=== PATIENT | male | born 1950 | race Caucasian/White ===

== ENCOUNTER 2017-07-23 10:22 | Inpatient (IN) | payer BC, MEDICARE ==
[2017-07-23] MEDS ORDERED: Aspirin EC TAB* 325 MG PO ONE (10:46)
--- NOTE | 2017-07-23 11:14 | RAD ---
INDICATION: Chest pain with exertion. Abnormal EKG. COMPARISON: July 23, 2006 chest radiograph. TECHNIQUE: Dual energy PA and routine lateral views of the chest were obtained. REPORT: Clear lungs and pleural spaces. Negative for pneumothorax. The heart, pulmonary vasculature, and mediastinal contours are unremarkable. Mild thoracic degenerative spondylosis. IMPRESSION: No evidence for acute intrathoracic disease.
[2017-07-23 11:26] LABS: ABS Basophils 0 10^3/ul (0-0.2); ABS Eosinophils 0.1 10^3/ul (0-0.6); ABS Lymphocytes 0.9 10^3/ul (1.0-4.8); ABS Monocytes 0.5 10^3/ul (0-0.8); ABS Neutrophils 4.4 10^3/ul (1.5-7.7); ABS Nucleated RBC 0 10^3/ul; Eosinophil % 2.1 % (0-6); Hematocrit 40 % (42-52); Hemoglobin 13.5 g/dl (14.0-18.0); Lymphocyte % 15.5 % (25-47); Mean Corpuscular HGB Conc 34 g/dl (31-36); Mean Corpuscular Hemoglobin 27 pg (27-31); Mean Corpuscular Volume 81 fL (80-94); Mean Platelet Volume 8 um3 (7.4-10.4); Nucleated Red Blood Cells % 0; Platelet Count 181 10^3/ul (150-450); Red Blood Count 4.97 10^6/ul (4.0-5.4); Red Cell Distribution Width 14 % (10.5-15)
[2017-07-23 11:35] LABS: INR 1.18 (0.77-1.02)
[2017-07-23 11:40] LABS: EGFR Non-African American 92.7 (>60)
[2017-07-23] MEDS ORDERED: Nitroglycerin 0.1 mg/Hr PATCH* (2.5 MG) TRANSDERM ONE (11:44)
[2017-07-23] MEDS ORDERED: Metoprolol Tartrate TAB* 25 MG PO ONE (11:44)
[2017-07-23] MEDS ORDERED: Heparin DRIP 25,000 UNITS(*) 25,000 UNITS/500 ML BAG IVPB SCH (14:15)
[2017-07-23] MEDS: Heparin VIAL(*) 5000 UNITS/ML VIAL (FIVE THOUSAND) IV SCH ×2 (14:20→20:53)
[2017-07-23] MEDS ORDERED: Ondansetron INJ* 2 MG/ML VIAL IV PRN (14:37)
[2017-07-23] MEDS ORDERED: Al Hydrox/Mg Hydrox/Simet LIQ* 30 ML UDC PO PRN (14:37)
[2017-07-23] MEDS ORDERED: Acetaminophen TAB* 325 MG PO PRN (14:37)
[2017-07-23] MEDS ORDERED: HYDROmorphone INJ* 1 MG/ML CARPUJECT SYRINGE ONE (14:39)
[2017-07-23] MEDS ORDERED: Ticagrelor* 90 MG TAB PO ONE (14:47)
[2017-07-23] MEDS ORDERED: Magnesium Sulfate 2 GM IV* 2 GM/50 ML BAG IVPB ONE (14:47)
[2017-07-23] MEDS ORDERED: Nitroglycerin TAB 0.4 MG* 0.4 MG TAB SL PRN (14:51)
--- NOTE | 2017-07-23 15:19 | ED ---
Anusha Torres Thomas, scribed for Andres Medina MD on 07/23/17 at 1048 . HPI Chest Pain - HPI Summary HPI Summary: The patient is a 66 year old male referred to the emergency department complaining of intermittent chest pain for the last month. The pain is provoked by exertion and is alleviated when he rests. The pain is described as pressure. There is no radiation of the chest pain. The pain is associated with nausea and diaphoresis. There is no shortness of breath or dizziness. The patient went to see his primary care provider yesterday, and the patient was noted to be in A- Fib with RVR. The patients primary care provider sent for bloodwork and a chest x-ray. The patients troponin was noted to be 3.3, and he was asked to come to the emergency department. Today, the patient continues to have intermittent pressure pain. - History of Current Complaint Chief Complaint: EDChestPainROMI Time Seen by Provider: 07/23/17 10:42 Hx Obtained From: Patient Onset/Duration: Started Weeks Ago - onset one month ago, Still Present Timing: Intermittent Current Severity: None Pain Intensity: 0 Pain Scale Used: 0-10 Numeric Character: Pressure/Squeezing Aggravating Factor(s): Exertion Alleviating Factor(s): Rest Associated Signs and Symptoms: Positive: Other: - nausea, diaphoresis; NEGATIVE : SOB, dizziness. Negative: Fever Related History: Obesity - Allergy/Home Medications Allergies/Adverse Reactions: Allergies Allergy/AdvReac Type Severity Reaction Status Date / Time No Known Allergies Allergy Verified 07/23/17 10:55 Home Medications: Home Medications Allopurinol [Allopurinol] 1 tab PO DAILY 07/23/17 [History Confirmed 07/23/17] Apixaban* [Eliquis*] 5 mg PO DAILY 07/23/17 [History Confirmed 07/23/17] Aspirin 81 mg PO DAILY 07/23/17 [History Confirmed 07/23/17] Atenolol 50 mg PO BID 07/23/17 [History Confirmed 07/23/17] Atorvastatin* [Lipitor 40 MG*] 40 mg PO DAILY 07/23/17 [History Confirmed ] Nitroglycerin [Nitroglycerin] 1 tab SL SEE INSTRUCTIONS PRN 07/23/17 [History Confirmed 07/23/17] PMH/Surg Hx/FS Hx/Imm Hx Opthamlomology History: Denies: Hx Legally Blind EENT History: Denies: Hx Deafness Neurological History: Reports: Hx Headaches Infectious Disease History: No Infectious Disease History: Denies: Traveled Outside the [place] in Last 30 Days - Family History Known Family History: Negative: Cardiac Disease - Social History Alcohol Use: None Substance Use Type: Reports: None Smoking Status (MU): Never Smoked Tobacco Review of Systems Positive: Skin Diaphoresis. Negative: Fever Positive: Chest Pain Negative: Shortness Of Breath Positive: Nausea Neurological: Negative - dizziness All Other Systems Reviewed And Are Negative: Yes Physical Exam - Summary Physical Exam Summary: VITAL SIGNS: Reviewed. GENERAL: Patient is a well-developed and nourished male who is lying comfortable in the stretcher. Patient is not in any acute respiratory distress. HEAD AND FACE: No signs of trauma. No ecchymosis, hematomas or skull depressions. No sinus tenderness. EYES: PERRLA, EOMI x 2, No injected conjunctiva, no nystagmus. EARS: Hearing grossly intact. Ear canals and tympanic membranes are within normal limits. MOUTH: Oropharynx within normal limits. NECK: Supple, trachea is midline, no adenopathy, no JVD, no carotid bruit, no c- spine tenderness, neck with full ROM. CHEST: Symmetric, no tenderness at palpation LUNGS: Clear to auscultation bilaterally. No wheezing or crackles. CVS: Regular rate and rhythm, S1 and S2 present, no murmurs or gallops appreciated. ABDOMEN: Soft, non-tender. No signs of distention. No rebound no guarding, and no masses palpated. Bowel sounds are normal. EXTREMITIES: FROM in all major joints, no edema, no cyanosis or clubbing. NEURO: Alert and oriented x 3. No acute neurological deficits. Speech is normal and follows commands. SKIN: Dry and warm Triage Information Reviewed: Yes Vital Signs On Initial Exam: Initial Vitals Temp Pulse Resp BP Pulse Ox 97.3 F 100 18 188/93 96 07/23/17 10:24 07/23/17 10:24 07/23/17 10:24 07/23/17 10:24 07/23/17 10:24 Vital Signs Reviewed: Yes Diagnostics - Vital Signs Vital Signs Temp Pulse Resp BP Pulse Ox 07/23/17 10:40 93 15 97 07/23/17 10:39 166/89 07/23/17 10:24 97.3 F 100 18 188/93 96 - Laboratory Lab Results: Lab Results 07/23/17 07/23/17 07/23/17 Range/Units 11:05 11:05 11:05 WBC (3.5-10.8) 10^3/ul RBC (4.0-5.4) 10^6/ul Hgb (14.0-18.0) g/dl Hct (42-52) % MCV (80-94) fL MCH (27-31) pg MCHC (31-36) g/dl RDW (10.5-15) % Plt Count (150-450) 10^3/ul MPV (7.4-10.4) um3 Neut % (Auto) (38-83) % Lymph % (Auto) (25-47) % Madison % (Auto) (0-7) % Eos % (Auto) (0-6) % Baso % (Auto) (0-2) % Absolute Neuts (auto) (1.5-7.7) 10^3/ul Absolute Lymphs (auto) (1.0-4.8) 10^3/ul Absolute Monos (auto) (0-0.8) 10^3/ul Absolute Eos (auto) (0-0.6) 10^3/ul Absolute Basos (auto) (0-0.2) 10^3/ul Absolute Nucleated RBC 10^3/ul Nucleated RBC % INR (Anticoag Therapy) 1.18 H (0.77-1.02) APTT 34.1 (26.0-36.3) seconds Sodium 136 (133-145) mmol/L Potassium 4.0 (3.5-5.0) mmol/L Chloride 102 (101-111) mmol/L Carbon Dioxide 28 (22-32) mmol/L Anion Gap 6 (2-11) mmol/L BUN 11 (6-24) mg/dL Creatinine 0.83 (0.67-1.17) mg/dL Est GFR ( Amer) 119.2 (>60) Est GFR (Non-Af Amer) 92.7 (>60) BUN/Creatinine Ratio 13.3 (8-20) Glucose 256 H (70-100) mg/dL Calcium 9.4 (8.6-10.3) mg/dL Magnesium 1.7 L (1.9-2.7) mg/dL Total Bilirubin 0.70 (0.2-1.0) mg/dL AST 19 (13-39) U/L ALT 15 (7-52) U/L Alkaline Phosphatase 98 (34-104) U/L Total Creatine Kinase 92 (10-223) U/L CK-MB (CK-2) 4.5 (0.6-6.3) ng/mL Troponin I 0.80 H* (<0.04) ng/mL B-Natriuretic Peptide 75 ( - 100) pg/mL Total Protein 6.8 (6.4-8.9) g/dL Albumin 4.2 (3.2-5.2) g/dL Globulin 2.6 (2-4) g/dL Albumin/Globulin Ratio 1.6 (1-3) TSH 2.37 (0.34-5.60) mcIU/mL Thyroxine (T4) 7.08 (6.09-12.23) mcg/mL 07/23/17 07/23/17 Range/Units 11:05 13:40 WBC 6.0 (3.5-10.8) 10^3/ul RBC 4.97 (4.0-5.4) 10^6/ul Hgb 13.5 L (14.0-18.0) g/dl Hct 40 L (42-52) % MCV 81 (80-94) fL MCH 27 (27-31) pg MCHC 34 (31-36) g/dl RDW 14 (10.5-15) % Plt Count 181 (150-450) 10^3/ul MPV 8 (7.4-10.4) um3 Neut % (Auto) 73.6 (38-83) % Lymph % (Auto) 15.5 L (25-47) % Madison % (Auto) 8.2 H (0-7) % Eos % (Auto) 2.1 (0-6) % Baso % (Auto) 0.6 (0-2) % Absolute Neuts (auto) 4.4 (1.5-7.7) 10^3/ul Absolute Lymphs (auto) 0.9 L (1.0-4.8) 10^3/ul Absolute Monos (auto) 0.5 (0-0.8) 10^3/ul Absolute Eos (auto) 0.1 (0-0.6) 10^3/ul Absolute Basos (auto) 0 (0-0.2) 10^3/ul Absolute Nucleated RBC 0 10^3/ul Nucleated RBC % 0 INR (Anticoag Therapy) (0.77-1.02) APTT (26.0-36.3) seconds Sodium (133-145) mmol/L Potassium (3.5-5.0) mmol/L Chloride (101-111) mmol/L Carbon Dioxide (22-32) mmol/L Anion Gap (2-11) mmol/L BUN (6-24) mg/dL Creatinine (0.67-1.17) mg/dL Est GFR ( Amer) (>60) Est GFR (Non-Af Amer) (>60) BUN/Creatinine Ratio (8-20) Glucose (70-100) mg/dL Calcium (8.6-10.3) mg/dL Magnesium (1.9-2.7) mg/dL Total Bilirubin (0.2-1.0) mg/dL AST (13-39) U/L ALT (7-52) U/L Alkaline Phosphatase (34-104) U/L Total Creatine Kinase (10-223) U/L CK-MB (CK-2) (0.6-6.3) ng/mL Troponin I 0.99 H* (<0.04) ng/mL B-Natriuretic Peptide ( - 100) pg/mL Total Protein (6.4-8.9) g/dL Albumin (3.2-5.2) g/dL Globulin (2-4) g/dL Albumin/Globulin Ratio (1-3) TSH (0.34-5.60) mcIU/mL Thyroxine (T4) (6.09-12.23) mcg/mL Result Diagrams: 07/23/17 11:05 07/23/17 11:05 Lab Statement: Any lab studies that have been ordered have been reviewed, and results considered in the medical decision making process. - Radiology CXR Xray Interpretation: No Acute Changes - No evidence for acute intrathoracic disease. Dr. Medina has reviewed this report. Radiology Interpretation Completed By: Radiologist - EKG 10:51 Cardiac Rate: NL EKG Rhythm: Sinus Rhythm - at 86 BPM EKG Interpretation: No ST elevations. Chest Pain Course/Dx - Course Assessment/Plan: The patient is a 66 year old male referred to the emergency department complaining of intermittent chest pain for the last month. The pain is provoked by exertion and is alleviated when he rests. The pain is described as pressure. There is no radiation of the chest pain. The pain is associated with nausea and diaphoresis. There is no shortness of breath or dizziness. The patient went to see his primary care provider yesterday, and the patient was noted to be in A-Fib with RVR. The patients primary care provider sent for bloodwork and a chest x-ray. The patients troponin was noted to be 3.3, and he was asked to come to the emergency department. Today, the patient continues to have intermittent pressure pain. Test results are without significant abnormality except a slight anemia, hyperglycemia, and troponin 0.80. EKG shows no ST elevations. Therefore, I believe the patient has an NSTEMI. The patient was given ASA, Lopressor, and a nitroglycerin patch. I discussed the case with Dr. Higgins, who accepts the patient for admission. The patient is hemodynamically stable and alert and oriented x3. - Chest Pain Differential Diagnosis/HQI/PQRI: Acute MA, ACS, Angina, CHF, Chest Wall, GI Disease, Lower Respiratory Infection - Diagnoses Provider Diagnoses: Chest pain, NSTEMI (non-ST elevated myocardial infarction) - Provider Notifications Discussed Care Of Patient With: Anant Higgins Time Discussed With Above Provider: 11:53 Instructed by Provider To: Admit As Inpatient Discharge - Discharge Plan Condition: Stable Disposition: ADMITTED TO [facility] The documentation as recorded by the Anusha quevedo Thomas accurately reflects the service I personally performed and the decisions made by me, Andres Medina MD.
[2017-07-23 15:51] LABS: Urine Appearance Clear; Urine Blood Negative (Negative); Urine Color Yellow; Urine Ketones Trace (Negative); Urine Protein Negative (Negative); Urine Specific Gravity 1.026 (1.010-1.030); Urine Urobilinogen Negative (Negative)
[2017-07-23] MEDS: Atorvastatin* 80 MG TAB PO SCH (17:43)
[2017-07-23] MEDS: NS 0.9% 1000 ML* 1,000 ML IV SCH (17:43)
[2017-07-23] MEDS: Atenolol TAB* 50 MG PO SCH (20:57)
[2017-07-23] MEDS: Docusate CAP* 100 MG PO SCH (20:57)
--- NOTE | 2017-07-23 21:23 | HP ---
CC: Dr. Adonis Talbot * HISTORY AND PHYSICAL: DATE OF ADMISSION: 07/23/17 PROVIDER: Libia Blanco NP PRIMARY CARE PROVIDER: Dr. Adonis Talbot. ATTENDING PHYSICIAN WHILE IN THE HOSPITAL: Dr. Anant Higgins * (report dictated by Libia Blanco NP). CHIEF COMPLAINT: Exertional chest pain. HISTORY OF PRESENT ILLNESS: Mr. Hahn is a 66-year-old male patient. He carries a past medical history of hypertension, diabetes, hypercholesterolemia and gout, who presented to the emergency room today for further evaluation of approximately 1 month period of ongoing chest pain with exertion. The patient states that approximately 1 month ago he started to develop chest pain with strenuous activity and exertion. He states initially the pain lasted 2 to 3 minutes and was subsided with rest. He does report that the pain did progressively get worse over time. He states he had 1 episode where he had to walk approximately quarter of a mile and had to stop fci through due to the severe chest pain. He states that the chest pain did fine with rest at that time. He does report that he was nauseated. He reports that his chest pain is always midsternal. It does not radiate. He denied any diaphoresis with any of the chest pain episodes. He states that on Saturday, he developed some substernal chest pain. He states that he got home at approximately 2 o'clock in the morning. He states that he had the substernal chest pain at that time and he had difficulty going to sleep and later wake due to the pain. He states the pain lasted approximately 4 hours. After that episode, he decided he would follow up with his primary care provider for further evaluation of his chest pain. On Saturday, he saw his primary care provider, Dr. Adonis Talbot who at that time ordered an EKG, a nuclear stress test, and a troponin. His troponin level that was drawn in doctor's office was 3.38. Initially, his EKG in the doctor's office showed what appeared to be atrial fibrillation and at that time his doctor started him on Eliquis 5 mg b.i.d. The patient reports that his doctor called him this morning and told him to come to the emergency room due to the elevation in the troponin level for further evaluation. The patient presented to the emergency room today. He states that he has not had any chest pain for the past 48 hours. He does report that he did take Eliquis 5 mg this morning. He was placed on the spindle repairer here in the emergency room. He was found to be in sinus rhythm at a rate of 86. He is currently in sinus rhythm at a rate of 68 on the monitor. Due to his elevated troponins and 1 month history of chest pain, we were asked to evaluate him for admission to the hospital. PAST MEDICAL HISTORY: Significant for: 1. Hypertension. 2. Diabetes. 3. Hypercholesterolemia. 4. Gout. PAST SURGICAL HISTORY: Significant for tonsillectomy. MEDICATIONS: Home medications include: 1. Eliquis 5 mg 1 tablet p.o. b.i.d., but has dosed at 7:30 a.m. This is a new medication that was started last night on 07/22/17. 2. Nitroglycerin 0.4 mg 1 tablet sublingual as needed for chest pain for maximum of 3 doses. 3. Atorvastatin 40 mg 1 p.o. daily. 4. Allopurinol 100 mg 1 p.o. daily. 5. Metformin HCl 850 mg 1 tablet by mouth daily. 6. Atenolol 50 mg 1 tablet 2 times a day. 7. Aspirin 81 mg p.o. daily. ALLERGIES: No known drug allergies. FAMILY HISTORY: Father with a history of stroke. Mother with a history of hypertension. No documented diabetes or cancers within the family. Mother also has dementia. SOCIAL HISTORY: The patient does not smoke, does not drink, does not use any illicit drugs. He is currently single and lives alone. Surrogate decision maker in the event he is unable to make his own decisions would be his daughter , Judy. Her phone number is [phone]. Secondary surrogate decision maker is his son, Jude Hahn. REVIEW OF SYSTEMS: There was no documented fever. There has been no significant weight change. There was no double vision. No ear discharge. The patient denies having any rhinorrhea. Denies any sore throat. Currently, denies any chest pain, but has reported chest pain for the last month stating that it occurs on a daily basis, only with strenuous activity. There is no orthopnea. There was no nocturnal dyspnea. There is no abdominal pain. No nausea, vomiting, or diarrhea. There was no dysuria or frequency. There has been no seizures. No loss of consciousness. No pruritus. No skin ulcerations. A review of 14 systems was completed and all others are negative. PHYSICAL EXAMINATION GENERAL: At this time, Mr. Hahn is a 66-year-old male. He appears well, sitting on the stretcher in the emergency room. He does not appear to be in any distress. VITAL SIGNS: Blood pressure is 133/86, temperature was 97.3, heart rate is 72, sinus rhythm on the monitor, respirations are 18, O2 saturation is 95% on room air. HEENT: Head is atraumatic, normocephalic. Eyes: EOMs are intact. Sclerae anicteric, not pale. Oral mucosa appears to be moist. No oropharyngeal erythema. NECK: Supple. LUNGS: Clear to auscultation bilaterally. No wheezes, rales, or rhonchi. CARDIAC: S1, S2. Regular rate and rhythm. There are no murmurs, rubs, or gallops. ABDOMEN: Soft and nontender. Bowel sounds are active x4. EXTREMITIES: Pulses are +2 throughout. He is able to move all 4 extremities with 5/5 strength. NEUROLOGIC: He is awake. He is alert and oriented x3. Speech is clear. There are no focal deficits. SKIN: Skin is intact. DIAGNOSTIC STUDIES AND LABORATORY DATA: WBCs were 6.0, RBCs were 4.97, hemoglobin 13.5, hematocrit was 40, platelet count was 181. INR was 1.18. APTT was 34.1. Sodium was 136, potassium was 4, chloride was 102, carbon dioxide was 28, anion gap was 6, BUN was 11, creatinine was 0.83, glucose was 256, calcium 9.4, magnesium was 1.7. ASTs were 19, ALTs were 15. Initial troponin was 0.80, repeat troponin was 0.99. BNP was 75. TSH was 2.37 and T4 was 7.08. EKG shows sinus rhythm or left anterior fascicular block at a rate of 86. Chest x- ray, impression: There is no evidence of acute intrathoracic disease. ASSESSMENT AND PLAN: Mr. Hahn is a 66-year-old male patient that presented to the emergency room with a complaint of chest pain on and off times for the last month. He states that he was seen and evaluated by his primary care provider yesterday and was asked to come to the emergency room for further evaluation of his chest pain and his elevated troponin. He will be admitted to the hospital as inpatient status for: 1. Chest pain. I suspect that his chest pain is related to myocardial ischemia at this time. I have consulted Cardiology, Dr. Hope who recommended to be placed him on a heparin bolus and heparin drip and he will be a candidate for cardiac catheterization. The patient will continue on a beta-esperanza. He currently takes atenolol 50 mg, we will continue that. We will continue his aspirin [address] him on a high-intensity atorvastatin 80 mg p.o. daily. We will repeat an EKG in the morning. He will be placed on continuous telemetry monitoring. He will be n.p.o. after midnight for his cardiac catheterization. We will continue to trend his troponins x2. I will add on a lipid profile for the morning. 2. Hypertension. We will continue him on his atenolol 50 mg b.i.d. 3. Diabetes. We will do Accu-Cheks a.c. and continue his metformin 500 mg p.o. daily. I will add an A1c to his lab work from today. 4. Hypomagnesium. I will give him 2 g of IV magnesium. 5. Hypercholesterolemia. He will be placed on Lipitor 80 mg p.o. daily. 6. FEN. He will be n.p.o. after midnight. He can have a heart healthy diet today. 7. Code status. He is a full code. 8. DVT prophylaxis. He is on heparin drip. 9. Disposition. He will be placed inpatient. TIME SPENT: Time spent on this admission was approximately 60 minutes, greater than half that time was spent [id number] with the patient obtaining my history and physical, the other half time was spent going over the plan of care with the patient and his family and implementing my plan of care. I have discussed this with my attending, Dr. Anant Higgins and he is in agreement with my plan. LIBIA RACHEL, EXHIBITION DESIGNER [id number]/[facility] #: [id number] ALYCIA
--- NOTE | 2017-07-23 23:49 | CONS ---
CARDIOLOGY CONSULTATION REPORT: DATE OF CONSULT: 07/23/17 INDICATION FOR CONSULTATION: Acute coronary syndrome. HISTORY OF PRESENT ILLNESS: The patient is a 66-year-old male with a history of hypertension, diabetes, hypercholesterolemia, who came to the hospital because of acute coronary syndrome and chest pain. The patient states for the past month, he has been having crescendo angina with exertion. The patient states when he did any exertion, he would have a burning sensation in his chest. He felt as though he had a sunburn on his chest; however, when he rested , these symptoms went away. However, on Saturday, he had a prolonged episode of angina at rest. He had the same symptoms as well as diaphoresis and nausea. Again, it lasted 3 to 4 hours and then slowly resolved. Yesterday morning, he went to see his primary care physician. His EKG at the primary care physician' s office appeared to be atrial fibrillation. The patient was given a prescription for Eliquis and had blood drawn. This morning, his blood work came back and showed a troponin level of 3.3 and the patient was instructed to go to the emergency room. On arrival to the emergency room at [facility], the patient was pain free. His last dose of Eliquis was this morning at 7:30 in the morning. PAST MEDICAL HISTORY: 1. Hypertension. 2. Hypercholesterolemia. 3. Diabetes. PAST SURGICAL HISTORY: None. MEDICATIONS: 1. Atorvastatin 40 mg a day. 2. Aspirin 81 mg a day. 3. Atenolol 50 mg b.i.d. 4. Apixaban 5 mg daily. This was just started yesterday. 5. Metformin 850 mg daily. ALLERGIES: No known drug allergies. FAMILY HISTORY: No family history of early coronary artery disease. SOCIAL HISTORY: He lives in [place]. He denies tobacco or alcohol use. PHYSICAL EXAM: Height is 6 feet, weight 242 pounds. Temperature 98.3, heart rate is 81, blood pressure 138/81, respiratory rate is 16, oxygen saturation 96 % on room air. Sclerae anicteric. Oropharynx is pink without erythema. Carotids are 2+ without bruits. JVD is normal. Thyroid is normal. Cardiac Exam: S1, S2 without any murmurs, rubs, or gallops. PMI is normal. Lungs are clear to auscultation bilaterally. There is no dullness to percussion. Abdomen is soft, nontender, and nondistended with normoactive bowel sounds. Extremities showed no edema. He has 2+ pulses throughout. The patient is awake , alert and oriented. He moves all 4 extremities equally. DIAGNOSTIC STUDIES/LAB DATA: CBC within normal limits. Chemistries within normal limits. BUN 11, creatinine 0.83. AST and ALT are normal. Magnesium 1.7. Initial troponin 0.8, second troponin 0.99. TSH 2.37. EKG demonstrates normal sinus rhythm with normal axis and intervals. IMPRESSION: This is a 66-year-old male with a history of hypertension and hypercholesterolemia, who has had crescendo angina from the past week and appeared to have an acute coronary syndrome on Saturday. The patient is now being admitted to the hospital for his acute coronary syndrome. RECOMMENDATIONS: For now, my recommendation is the patient be started on heparin. His Eliquis will be stopped. The patient will continue on aspirin. My recommendation is the patient to get Brilinta 180 mg now and started on 90 mg b.i.d. The patient will continue his statin therapy and beta esperanza therapy. The patient will undergo a cardiac catheterization. The risks of this procedure were described in detail to the patient. The risks and benefits were explained. The patient is willing to proceed. The patient will have a cardiac catheterization by Dr. Moran in the next day or 2 once the determination of his Eliquis status is resolved. The patient did have atrial fibrillation at his primary care physician's office. The patient will be observed for atrial fibrillation here in the hospital. The question is whether she goes home on anticoagulation for his atrial fibrillation. [id number]/[facility] #: [id number] ALYCIA
[2017-07-24 05:02] LABS: ABS Basophils 0 10^3/ul (0-0.2); ABS Eosinophils 0.2 10^3/ul (0-0.6); ABS Lymphocytes 1.4 10^3/ul (1.0-4.8); ABS Monocytes 0.6 10^3/ul (0-0.8); ABS Neutrophils 5.4 10^3/ul (1.5-7.7); ABS Nucleated RBC 0 10^3/ul; Eosinophil % 2.7 % (0-6); Hematocrit 37 % (42-52); Lymphocyte % 18.8 % (25-47); Mean Corpuscular HGB Conc 35 g/dl (31-36); Mean Corpuscular Hemoglobin 28 pg (27-31); Mean Corpuscular Volume 80 fL (80-94); Mean Platelet Volume 8 um3 (7.4-10.4); Nucleated Red Blood Cells % 0; Platelet Count 178 10^3/ul (150-450); Red Blood Count 4.68 10^6/ul (4.0-5.4); Red Cell Distribution Width 14 % (10.5-15); White Blood Count 7.7 10^3/ul (3.5-10.8)
[2017-07-24 05:17] LABS: EGFR Non-African American 102.6 (>60)
[2017-07-24] MEDS: Heparin VIAL(*) 5000 UNITS/ML VIAL (FIVE THOUSAND) IV SCH (05:42)
[2017-07-24] MEDS: NS 0.9% 1000 ML* 1,000 ML IV SCH (05:48)
[2017-07-24] MEDS ORDERED: Perflutren Lipid Microsphere* 3 ML VIAL ONE (07:48)
[2017-07-24] MEDS ORDERED: Ticagrelor* 90 MG TAB PO SCH (09:00)
[2017-07-24] MEDS ORDERED: metFORMIN* 850 MG TAB PO SCH (09:00)
[2017-07-24] MEDS: Aspirin Low Dose CHEW TAB* 81 MG PO SCH (09:07)
[2017-07-24] MEDS: Atenolol TAB* 50 MG PO SCH ×2 (09:07→21:12)
[2017-07-24] MEDS: Docusate CAP* 100 MG PO SCH ×2 (09:08→21:15)
--- NOTE | 2017-07-24 09:29 | ECHO ---
Patient: SAÚL CHRISTENSEN [facility] Rec#: [id number] : 1950 Date: 07/24/2017 Age: 66y Height: 182.88 cm / 72.0 in Weight: 112.49 kg / 247.9 lbs Sex: M BSA: 2.33 Room#: 434 Admit Date#: 07/23/2017 Type: Inpatient Referring: Thiago Hope MD Reading: Laurel Mcgee MD Custodial Engineer: Yamila Arizmendi YARI CC: Heather Moran MD CC: Adonis Talbot MD Transthoracic Echocardiogram Indication: ACS BP: 151/82 HR: 61 Rhythm: NSR Findings History: HTN,DM,CP,ACS,HLD. Technical Comments: The study is technically difficult. Definity used to enhance images. Left Ventricle: The left ventricular chamber size is normal. Septal wall hypertrophy is observed. There is normal left ventricular systolic function.The base of the posterior wall shows subtle relative hypokinesis. The estimated ejection fraction is 55-60%. Abnormal left ventricular diastolic filling is observed, consistent with impaired relaxation. The left ventricular diastolic filling pattern is consistent with elevated left ventricular end-diastolic pressure. Left Atrium: The left atrium is mildly dilated. Right Ventricle: The right ventricular cavity size is normal. The right ventricular global systolic function is normal. Right Atrium: The right atrial cavity size is normal. Aortic Valve: The aortic valve is trileaflet. There is no evidence of aortic valve thickening. There is no evidence of aortic regurgitation. There is no evidence of aortic stenosis. Mitral Valve: The mitral valve leaflets appear normal. There is mild mitral regurgitation. There is no evidence of mitral stenosis. Tricuspid Valve: The tricuspid valve leaflets are normal. There is trace to mild tricuspid regurgitation. There is evidence of mild pulmonary hypertension. Pulmonic Valve: The pulmonic valve appears normal. There is no evidence of pulmonic regurgitation. There is no pulmonic stenosis. Pericardium: A pericardial fat pad is visualized. Aorta: There is mild dilatation of the ascending aorta. There is no dilatation of the aortic arch. There is mild dilatation of the aortic root. Pulmonary Artery: The main pulmonary artery appears normal. Venous: The venous system is not well visualized. Contrast: Definity was used to optimize study. A total of 5 ml used. Intravenous contrast was used to enhance endocardial border definition. Conclusions The left ventricular chamber size is normal. Septal wall hypertrophy is observed. There is normal left ventricular systolic function.The base of the posterior wall shows subtle relative hypokinesis. The estimated ejection fraction is 55-60%. The left ventricular diastolic filling pattern is consistent with elevated left ventricular end-diastolic pressure. The right ventricular global systolic function is normal. There is mild mitral regurgitation. There is trace to mild tricuspid regurgitation. There is evidence of mild pulmonary hypertension: 38 mmHg. Ascending aorta diameter 3.5 cm, mildly dilated. No prior echo to compare. Measurements Name Value Normal Range RVIDd (AP) 2D 3.2 cm (0.9 - 2.6) RVDdMajor (2D) 4 cm (2.2 - 4.4) RAd ISD 4CH 5 cm (3.4 - 4.9) RA (A4C)W 3.9 cm (2.9 - 4.6) IVSd (2D) 1.2 cm (0.6 - 1) LVPWd (2D) 0.8 cm (0.6 - 1) LVIDd (2D) 4.8 cm (3.6 - 5.4) LVIDs (2D) 3.4 cm - LV FS (2D) 30 % (25 - 45) Aortic Annulus 2.2 cm (1.4 - 2.6) Ao root diameter (2D) 3.9 cm (2.1 - 3.5) Ascending Ao 3.5 cm (2.1 - 3.4) Aortic arch 3.3 cm (1.8 - 3.4) Descending Ao 0.5 cm - LA dimension (AP) 2D 4.5 cm (2.3 - 3.8) LAd ISD 4CH 5.8 cm (2.9 - 5.3) LA ISD 4CH W 3.4 cm (2.5 - 4.5) Name Value Normal Range LA ESV SP 4CH (A/L) 43 ml - LA ESV SP 2CH (A/L) 87 ml - LA ESV BP (A/L) 67 ml - LA ESV BP (A/L) index 28.46 ml/m2 - LA ESV SP 4CH (MOD) 40 ml - LA ESV SP 2CH (MOD) 84 ml - Name Value Normal Range MV E-wave Vmax 1 m/sec - MV deceleration time 214 msec - MV A-wave Vmax 0.8 m/sec - MV E:A ratio 1.28 ratio - LV septal e' Vmax 0.06 m/sec - LV lateral e' Vmax 0.09 m/sec - LV E:e' septal ratio 16.67 ratio - LV E:e' lateral ratio 11.11 ratio - Name Value Normal Range AV Vmax 1.4 m/sec - AV VTI 35.2 cm - AV peak gradient 8.04 mmHg - AV mean gradient 4.86 mmHg - LVOT Vmax 1.1 m/sec - LVOT VTI 28 cm - LVOT peak gradient 5.1 mmHg - LVOT mean gradient 2.34 mmHg - Name Value Normal Range MR Vmax 3.3 m/sec - MR VTI 116 cm - Name Value Normal Range TR Vmax 2.8 m/sec - TR peak gradient 30 mmHg - RAP 8 mmHg - RVSP 38 mmHg - Name Value Normal Range PV Vmax 0.8 m/sec - PV peak gradient 2.33 mmHg -
[2017-07-24] MEDS ORDERED: fentaNYL* 50 MCG/ML 2 ML VIAL (100 MCG VIAL) ONE ×2 (10:30→11:43)
[2017-07-24] MEDS ORDERED: Heparin(*) 1000 UNIT/ML 10 ML VIAL CATH LAB IV ONE ×2 (10:31→10:32)
[2017-07-24] MEDS ORDERED: Heparin 2 UNITS/ML IVPREMIX* 2,000 ML IV ONE (10:31)
[2017-07-24] MEDS ORDERED: nitroGLYCERIN DRIP* 25,000 MCG/250 ML BTL ONE ×2 (10:31→10:33)
[2017-07-24] MEDS ORDERED: Lidocaine 1% INJ* 10 MG/ML 30 ML SDV ONE (10:31)
[2017-07-24] MEDS ORDERED: Iohexol 350 (CONTRAST) 200 ML MDV IV ONE (10:32)
[2017-07-24] MEDS ORDERED: VERAPAMIL 2.5 MG/ML 2 ML VIAL ** 5 mg/2 ml ONE (10:33)
[2017-07-24] MEDS ORDERED: Midazolam* 1 MG/ML 10 ML VIAL (10 MG) ONE (10:33)
--- NOTE | 2017-07-24 10:42 | PN ---
Subjective Date of Service: 07/24/17 - CC: CP on exertion. Interval History: The patient did not sleep well, but no chest pain and no dyspnea/orthopnea. Per patient he is unaware of any allergy to an ACEI or ARB, has never been on in the past. Medications Active Medications: Acetaminophen (Tylenol Tab*) 650 mg PO Q4H PRN PRN Reason: FEVER/PAIN Al Hydrox/Mg Hydrox/Simethicone (Maalox Plus*) 30 ml PO Q6H PRN PRN Reason: INDIGESTION Aspirin (Aspirin Low Dose Tab*) 81 mg PO DAILY [facility] Last Admin: 07/24/17 09:07 Dose: 81 mg Atenolol (Tenormin Tab*) 50 mg PO BID [facility] Last Admin: 07/24/17 09:07 Dose: 50 mg Atorvastatin Calcium (Lipitor*) 80 mg PO 1700 [facility] Last Admin: 07/23/17 17:43 Dose: 80 mg Docusate Sodium (Colace Cap*) 100 mg PO BID [facility] Last Admin: 07/24/17 09:08 Dose: Not Given Heparin Sodium (Porcine) (Heparin Vial(*)) 0 units IV .PER PROTOCOL [facility] PRN Reason: Protocol Last Admin: 07/24/17 05:42 Dose: 2,000 units Sodium Chloride (Ns 0.9% 1000 Ml*) 1,000 mls @ 100 mls/hr IV .per rate [facility] Last Admin: 07/24/17 05:48 Dose: 100 mls/hr Nitroglycerin (Nitroglycerin Tab 0.4 Mg*) 0.4 mg SL Q5M PRN PRN Reason: PAIN - CHEST Ondansetron HCl (Zofran Inj*) 4 mg IV Q4H PRN PRN Reason: NAUSEA/VOMITING Ticagrelor (Brilinta*) 90 mg PO BID [facility] Last Admin: 07/24/17 09:07 Dose: 90 mg Objective Vital Signs: Temp Pulse Resp BP Pulse Ox 98.5 F 57 18 162/74 98 07/24/17 07:22 07/24/17 07:22 07/24/17 07:22 07/24/17 07:22 07/24/17 07:22 Oxygen Devices in Use Now: None Appearance: Overweight somewhat older gentleman sitting on the edge of the bed in [facility]. Eyes: No Scleral Icterus, PERRLA Ears/Nose/Mouth/Throat: Clear Oropharnyx, Mucous Membranes Moist Neck: NL Appearance and Movements; NL JVP, Trachea Midline, No Thyroid Enlargement, Masses Respiratory: Symmetrical Chest Expansion and Respiratory Effort, Clear to Auscultation Cardiovascular: NL Sounds; No Murmurs; No JVD, RRR Abdominal: NL Sounds; No Tenderness; No Distention, No Hepatosplenomegaly Extremities: No Edema, No Clubbing, Cyanosis Skin: No Rash or Ulcers Neurological: Alert and Oriented x 3, NL Muscle Strength and Tone Lines/Tubes/Other Access: Clean, Dry and Intact Peripheral IV Laboratory Results: 07/24/17 04:40 07/24/17 04:40 INR (Anticoag Therapy) 1.18 (0.77-1.02) H 07/23/17 11:05 APTT 42.9 seconds (26.0-36.3) H 07/24/17 04:40 Total Bilirubin 0.70 mg/dL (0.2-1.0) 07/23/17 11:05 AST 19 U/L (13-39) 07/23/17 11:05 ALT 15 U/L (7-52) 07/23/17 11:05 Alkaline Phosphatase 98 U/L (34-104) 07/23/17 11:05 CK-MB (CK-2) 4.5 ng/mL (0.6-6.3) 07/23/17 11:05 B-Natriuretic Peptide 75 pg/mL (-100) 07/23/17 11:05 Total Protein 6.8 g/dL (6.4-8.9) 07/23/17 11:05 Albumin 4.2 g/dL (3.2-5.2) 07/23/17 11:05 Globulin 2.6 g/dL (2-4) 07/23/17 11:05 Albumin/Globulin Ratio 1.6 (1-3) 07/23/17 11:05 Triglycerides 355 mg/dL 07/24/17 04:40 Cholesterol 122 mg/dL 07/24/17 04:40 LDL Cholesterol 26 mg/dL 07/24/17 04:40 HDL Cholesterol 25.5 mg/dL 07/24/17 04:40 TSH 2.37 mcIU/mL (0.34-5.60) 07/23/17 11:05 07/23/17 07/23/17 07/23/17 16:41 20:00 23:40 Troponin I 0.95 H* 0.50 H* 0.88 H* 07/24/17 04:40 Troponin I 0.79 H* Diagnostic Imaging: Echo 07/24/17: Normal EF, 55-60%, subtle relative hypokinesis inf/post wall at the base. Diastolic dysfunction and elevated LVEDP. Mild MR, TR, PApr 38 mmHg. EKG Data: Monitor: NSR rare PAC, PVC Assessment/Plan 66 yo male with angina on exertion, mild elevation in troponins, CAD risks of DM , type 2, HTN, dyslipidemia, centripital obesity. CP free on beta esperanza, bed rest and anticoagulation. BP elevated. ACS/NQMI: Cath this AM. Continue ASA, on Brilinta, heparin. Continue Atorvastatin. HTN: I will add ACEI: Lisinopril 10 mg PO q day and titrate to BP. Lipids: LDL: good control. TG's elevated, would benefit from dietary changes, can work on in the future. DM: Metformin as outpatient, on hold for cath. Await results of cath for further recommendations.
[2017-07-24] MEDS ORDERED: Atropine SYRINGE* 0.1 MG/ML 10 ML SYRINGE (1 MG) ONE (11:42)
[2017-07-24] MEDS ORDERED: NS 0.9% 1000 ML* 1,000 ML IV SCH (12:30)
[2017-07-24] MEDS: Enoxaparin(*) 100 MG/ML SYR SUBCUT SCH (17:30)
[2017-07-24] MEDS: Atorvastatin* 80 MG TAB PO SCH (17:32)
--- NOTE | 2017-07-24 17:54 | PN ---
Subjective Date of Service: 07/24/17 Interval History: Seen after [facility]. CAD not amenable to PCI. Recommendation is for CABG. Patient wants to think about this information and has not yet decided if or where he would like to pursue procedure. He is CP free without other complaints Objective Active Medications: Acetaminophen (Tylenol Tab*) 650 mg PO Q4H PRN PRN Reason: FEVER/PAIN Al Hydrox/Mg Hydrox/Simethicone (Maalox Plus*) 30 ml PO Q6H PRN PRN Reason: INDIGESTION Aspirin (Aspirin Low Dose Tab*) 81 mg PO DAILY [facility] Last Admin: 07/24/17 09:07 Dose: 81 mg Atenolol (Tenormin Tab*) 50 mg PO BID [facility] Last Admin: 07/24/17 09:07 Dose: 50 mg Atorvastatin Calcium (Lipitor*) 80 mg PO 1700 [facility] Last Admin: 07/24/17 17:32 Dose: 80 mg Docusate Sodium (Colace Cap*) 100 mg PO BID [facility] Last Admin: 07/24/17 09:08 Dose: Not Given Enoxaparin Sodium (Lovenox(*)) 100 mg SUBCUT Q12H [facility] Last Admin: 07/24/17 17:30 Dose: 100 mg Lisinopril (Prinivil Tab*) 10 mg PO DAILY [facility] Nitroglycerin (Nitroglycerin Tab 0.4 Mg*) 0.4 mg SL Q5M PRN PRN Reason: PAIN - CHEST Ondansetron HCl (Zofran Inj*) 4 mg IV Q4H PRN PRN Reason: NAUSEA/VOMITING Vital Signs - 8 hr 07/24/17 07/24/17 14:51 16:00 Temperature 97.5 F 97.9 F Pulse Rate 52 58 Respiratory 16 16 Rate Blood Pressure 138/77 152/85 (mmHg) O2 Sat by Pulse 98 100 Oximetry Oxygen Devices in Use Now: None Appearance: NAD Eyes: No Scleral Icterus, PERRLA Ears/Nose/Mouth/Throat: NL Teeth, Lips, Gums, Clear Oropharnyx, Mucous Membranes Moist Neck: NL Appearance and Movements; NL JVP, Trachea Midline Respiratory: Symmetrical Chest Expansion and Respiratory Effort, Clear to Auscultation Cardiovascular: NL Sounds; No Murmurs; No JVD, RRR Abdominal: NL Sounds; No Tenderness; No Distention, No Hepatosplenomegaly Lymphatic: No Cervical Adenopathy Extremities: No Edema, No Clubbing, Cyanosis, - - right wrist immobilized after C Skin: No Rash or Ulcers Neurological: Alert and Oriented x 3 Result Diagrams: 07/24/17 04:40 07/24/17 04:40 Additional Lab and Data: Lab Results 07/23/17 07/23/17 07/23/17 Range/Units 11:05 11:05 11:05 WBC (3.5-10.8) 10^3/ul RBC (4.0-5.4) 10^6/ul Hgb (14.0-18.0) g/dl Hct (42-52) % MCV (80-94) fL MCH (27-31) pg MCHC (31-36) g/dl RDW (10.5-15) % Plt Count (150-450) 10^3/ul MPV (7.4-10.4) um3 Neut % (Auto) (38-83) % Lymph % (Auto) (25-47) % [place]roquois % (Auto) (0-7) % Eos % (Auto) (0-6) % Baso % (Auto) (0-2) % Absolute Neuts (auto) (1.5-7.7) 10^3/ul Absolute Lymphs (auto) (1.0-4.8) 10^3/ul Absolute Monos (auto) (0-0.8) 10^3/ul Absolute Eos (auto) (0-0.6) 10^3/ul Absolute Basos (auto) (0-0.2) 10^3/ul Absolute Nucleated RBC 10^3/ul Nucleated RBC % INR (Anticoag Therapy) 1.18 H (0.77-1.02) APTT 34.1 (26.0-36.3) seconds Sodium 136 (133-145) mmol/L Potassium 4.0 (3.5-5.0) mmol/L Chloride 102 (101-111) mmol/L Carbon Dioxide 28 (22-32) mmol/L Anion Gap 6 (2-11) mmol/L BUN 11 (6-24) mg/dL Creatinine 0.83 (0.67-1.17) mg/dL Est GFR ( Amer) 119.2 (>60) Est GFR (Non-Af Amer) 92.7 (>60) BUN/Creatinine Ratio 13.3 (8-20) Glucose 256 H (70-100) mg/dL Calcium 9.4 (8.6-10.3) mg/dL Magnesium 1.7 L (1.9-2.7) mg/dL Total Bilirubin 0.70 (0.2-1.0) mg/dL AST 19 (13-39) U/L ALT 15 (7-52) U/L Alkaline Phosphatase 98 (34-104) U/L Total Creatine Kinase 92 (10-223) U/L CK-MB (CK-2) 4.5 (0.6-6.3) ng/mL Troponin I 0.80 H* (<0.04) ng/mL B-Natriuretic Peptide 75 ( - 100) pg/mL Total Protein 6.8 (6.4-8.9) g/dL Albumin 4.2 (3.2-5.2) g/dL Globulin 2.6 (2-4) g/dL Albumin/Globulin Ratio 1.6 (1-3) TSH 2.37 (0.34-5.60) mcIU/mL Thyroxine (T4) 7.08 (6.09-12.23) mcg/mL 07/23/17 07/23/17 Range/Units 11:05 13:40 WBC 6.0 (3.5-10.8) 10^3/ul RBC 4.97 (4.0-5.4) 10^6/ul Hgb 13.5 L (14.0-18.0) g/dl Hct 40 L (42-52) % MCV 81 (80-94) fL MCH 27 (27-31) pg MCHC 34 (31-36) g/dl RDW 14 (10.5-15) % Plt Count 181 (150-450) 10^3/ul MPV 8 (7.4-10.4) um3 Neut % (Auto) 73.6 (38-83) % Lymph % (Auto) 15.5 L (25-47) % [place]roquois % (Auto) 8.2 H (0-7) % Eos % (Auto) 2.1 (0-6) % Baso % (Auto) 0.6 (0-2) % Absolute Neuts (auto) 4.4 (1.5-7.7) 10^3/ul Absolute Lymphs (auto) 0.9 L (1.0-4.8) 10^3/ul Absolute Monos (auto) 0.5 (0-0.8) 10^3/ul Absolute Eos (auto) 0.1 (0-0.6) 10^3/ul Absolute Basos (auto) 0 (0-0.2) 10^3/ul Absolute Nucleated RBC 0 10^3/ul Nucleated RBC % 0 INR (Anticoag Therapy) (0.77-1.02) APTT (26.0-36.3) seconds Sodium (133-145) mmol/L Potassium (3.5-5.0) mmol/L Chloride (101-111) mmol/L Carbon Dioxide (22-32) mmol/L Anion Gap (2-11) mmol/L BUN (6-24) mg/dL Creatinine (0.67-1.17) mg/dL Est GFR ( Amer) (>60) Est GFR (Non-Af Amer) (>60) BUN/Creatinine Ratio (8-20) Glucose (70-100) mg/dL Calcium (8.6-10.3) mg/dL Magnesium (1.9-2.7) mg/dL Total Bilirubin (0.2-1.0) mg/dL AST (13-39) U/L ALT (7-52) U/L Alkaline Phosphatase (34-104) U/L Total Creatine Kinase (10-223) U/L CK-MB (CK-2) (0.6-6.3) ng/mL Troponin I 0.99 H* (<0.04) ng/mL B-Natriuretic Peptide ( - 100) pg/mL Total Protein (6.4-8.9) g/dL Albumin (3.2-5.2) g/dL Globulin (2-4) g/dL Albumin/Globulin Ratio (1-3) TSH (0.34-5.60) mcIU/mL Thyroxine (T4) (6.09-12.23) mcg/mL Assess/Plan/Problems-Billing Assessment: 66 yo M h/o HTN, HLD, DM2 presents with chest pain found with multivessel disease better amenable to CABG - Patient Problems (1) CAD (coronary artery disease) Comment: [facility] report pending Pt discussed results with Dr. Moran and is deciding if and where he may want bypass c/w lovenox full dose, ASA, atenolol, lipitor (2) Diabetes Comment: ISS hold metoprolol (3) Hypertension Comment: lisinopril, atenolol
[2017-07-24] MEDS ORDERED: Dextrose 50% Syringe 50 ML* 25 GM/50 ML SYRINGE IV PUSH PRN (17:55)
[2017-07-24] MEDS: Insulin LISPRO* 1 UNITS UNIT SUBCUT SCH (21:15)
[2017-07-25] MEDS: Enoxaparin(*) 100 MG/ML SYR SUBCUT SCH ×2 (05:31→17:49)
[2017-07-25 06:01] LABS: EGFR Non-African American 90.2 (>60)
[2017-07-25] MEDS: Atenolol TAB* 50 MG PO SCH ×2 (08:24→20:51)
[2017-07-25] MEDS: Aspirin Low Dose CHEW TAB* 81 MG PO SCH (08:24)
[2017-07-25] MEDS: Insulin LISPRO* 1 UNITS UNIT SUBCUT SCH ×4 (08:25→20:51)
[2017-07-25] MEDS: Docusate CAP* 100 MG PO SCH ×2 (08:25→20:51)
--- NOTE | 2017-07-25 13:43 | TRS ---
DATE OF ADMISSION: 07/24/2017. DATE OF TRANSFER: 07/25/2017. DISPOSITION ON TRANSFER: Transfer to [facility]. ACCEPTING PHYSICIAN: Dr. Steve Swartz, Cardiothoracic Surgery. REASON FOR TRANSFER: Two vessel disease involving the prox LAD in need of bypass surgery. CONDITION ON TRANSFER: Stable. PROCEDURES PERFORMED DURING HOSPITAL STAY: Left heart cath. Images to be included in transfer. Full report not yet dictated and involve at least two vessel disease involving the prox LAD not amenable to percutaneous intervention. IMAGING PERFORMED DURING HOSPITAL STAY: Transthoracic echocardiogram, again to be included with transfer information. Impression is septal wall hypertrophy; normal left ventricular systolic function, although the base of the posterior wall shows subtle relative hypokinesis; estimated LVEF 55 to 60 percent; left ventricular diastolic filling pattern is consistent with elevated left ventricular end- diastolic pressure; right ventricular global systolic function is normal; mild MR, trace TR; evidence of mild pulmonary hypertension 38 mmHg; ascending aorta diameter is 3.5 cm. No prior echo for comparison. PERTINENT LABORATORY DATA: Hemoglobin 13.0 the day prior to discharge, platelets 178. PTT on the day prior to discharge 42.9. BUN 11, creatinine 0.85 the day prior to discharge. Hemoglobin A1c 8.1. Total cholesterol 122, LDL 26, HDL 25, triglycerides 355. Troponin I peak at 0.95; however, fluctuating values between 0.5 and 0.99 with no consistent peak than cristobal, last check 07/24/2017. HOME MEDICATIONS: 1. Atenolol 50 mg twice daily. 2. Metformin 850 mg daily. 3. Aspirin 81 mg daily. 4. Atorvastatin 40 mg daily. 5. Nitroglycerin sublingual as needed. 6. Eliquis 5 mg daily. 7. Allopurinol one tab daily. MEDICATIONS ON TRANSFER: 1. Maalox Plus 30 ml every 6 hours as needed. 2. Aspirin 81 mg. 3. Atenolol 50 mg twice daily. 4. Lipitor 80 mg in the evening. 5. Docusate 100 mg twice daily. 6. Lovenox 100 mg twice daily. 7. Insulin Lispro sliding scale as needed. 8. Lisinopril 10 mg daily. 9. Nitroglycerin tab as needed. 10. Zofran 4 mg every 4 hours as needed. The patient was loaded with Brilinta 180 mg on 07/23/2017 and not continued. HISTORY OF PRESENT ILLNESS AND HOSPITAL COURSE: This is a 66-year-old male with a past medical history of hypertension, diabetes, hypercholesterolemia, as well as gout who has been experiencing crescendo angina with exertion over the month prior to presentation. He would experience a burning sensation in his chest with any type of exertion as if he had a sunburn on his chest, improved with rest. On the Saturday prior to presentation, he had a prolonged episode of angina at rest associated with diaphoresis and nausea that lasted for approximately three to four hours before resolving. He was seen by his PCP where an EKG, unavailable at this time, was reportedly notable for new atrial fibrillation for which he was started on Eliquis. His last dose of Eliquis was 7:30 in the morning on 07/23/2017. He was not brought to the label maker because of the timing of his dose of Eliquis and was instead brought on 07/24/2017. He experienced no additional chest pain since his admission to the hospital. He was maintained on a Heparin drip prior to left heart cath which was notable for two vessel disease including prox LAD per report, although final report not yet available. Will send images with patient to [facility]. He was observed for any additional evidence of atrial fibrillation which he did not have while on telemetry or repeat EKG's at our institution. He was transitioned to Lovenox after left heart cath which was accessed right radial artery with discontinuation of Apixaban as well as Brilinta. It was recommended for coronary bypass. With the assistance of Dr. Moran, accepting physician, Dr. Steve Swartz, who is found at [facility] which is the location of preference for the patient. He will be transferred to this institution in a stable condition, free of chest pain since prior to arrival at the hospital. Please note, in addition to the history above, the patient presented to his PCP because of the chest pain and had a notable troponin of 3.3 that returned after his visit, which was the primary reason he was referred to [facility] for further evaluation. There are no other complications during the course of the hospital stay. Please do not hesitate to contact myself or this institution for further information or details necessary to the care of this patient. [id number]/CPS #: [id number] MTDD
[2017-07-25] MEDS: Atorvastatin* 80 MG TAB PO SCH (16:29)
--- NOTE | 2017-07-25 19:23 | PN ---
Subjective Date of Service: 07/25/17 Interval History: No chest pain, SOB, N/V, LH Ambulating frequently around unit without complication. Would like to pursue CABg at [facility] and has been accepted by Aren Swartz but bed is still pending. Objective Active Medications: Acetaminophen (Tylenol Tab*) 650 mg PO Q4H PRN PRN Reason: FEVER/PAIN Al Hydrox/Mg Hydrox/Simethicone (Maalox Plus*) 30 ml PO Q6H PRN PRN Reason: INDIGESTION Aspirin (Aspirin Low Dose Tab*) 81 mg PO DAILY [facility] Last Admin: 07/25/17 08:24 Dose: 81 mg Atenolol (Tenormin Tab*) 50 mg PO BID [facility] Last Admin: 07/25/17 08:24 Dose: 50 mg Atorvastatin Calcium (Lipitor*) 80 mg PO 1700 [facility] Last Admin: 07/25/17 16:29 Dose: 80 mg Dextrose (D50w Syringe 50 Ml*) 12.5 gm IV PUSH .FOR FS < 60 - SS PRN PRN Reason: FS < 60 Docusate Sodium (Colace Cap*) 100 mg PO BID [facility] Last Admin: 07/25/17 08:25 Dose: 100 mg Enoxaparin Sodium (Lovenox(*)) 100 mg SUBCUT Q12H [facility] Last Admin: 07/25/17 17:49 Dose: 100 mg Insulin Human Lispro (Humalog*) 0 units SUBCUT ACHS [facility] PRN Reason: Protocol Last Admin: 07/25/17 16:24 Dose: Not Given Lisinopril (Prinivil Tab*) 10 mg PO DAILY [facility] Nitroglycerin (Nitroglycerin Tab 0.4 Mg*) 0.4 mg SL Q5M PRN PRN Reason: PAIN - CHEST Ondansetron HCl (Zofran Inj*) 4 mg IV Q4H PRN PRN Reason: NAUSEA/VOMITING Vital Signs - 8 hr 07/25/17 07/25/17 11:21 14:25 Temperature 98.0 F 99.1 F Pulse Rate 63 66 Respiratory 16 17 Rate Blood Pressure 136/72 140/80 (mmHg) O2 Sat by Pulse 97 99 Oximetry Oxygen Devices in Use Now: None Appearance: NAD Eyes: No Scleral Icterus, PERRLA Ears/Nose/Mouth/Throat: NL Teeth, Lips, Gums, Clear Oropharnyx, Mucous Membranes Moist Neck: NL Appearance and Movements; NL JVP Respiratory: Symmetrical Chest Expansion and Respiratory Effort, Clear to Auscultation Cardiovascular: NL Sounds; No Murmurs; No JVD, RRR Abdominal: NL Sounds; No Tenderness; No Distention, No Hepatosplenomegaly Lymphatic: No Cervical Adenopathy Extremities: No Edema, - - right radial site c/d/i no bruit or hematoma Skin: No Rash or Ulcers Neurological: Alert and Oriented x 3 Result Diagrams: 07/24/17 04:40 07/25/17 05:05 Additional Lab and Data: Lab Results 07/23/17 07/23/17 07/23/17 Range/Units 11:05 11:05 11:05 WBC (3.5-10.8) 10^3/ul RBC (4.0-5.4) 10^6/ul Hgb (14.0-18.0) g/dl Hct (42-52) % MCV (80-94) fL MCH (27-31) pg MCHC (31-36) g/dl RDW (10.5-15) % Plt Count (150-450) 10^3/ul MPV (7.4-10.4) um3 Neut % (Auto) (38-83) % Lymph % (Auto) (25-47) % Curry % (Auto) (0-7) % Eos % (Auto) (0-6) % Baso % (Auto) (0-2) % Absolute Neuts (auto) (1.5-7.7) 10^3/ul Absolute Lymphs (auto) (1.0-4.8) 10^3/ul Absolute Monos (auto) (0-0.8) 10^3/ul Absolute Eos (auto) (0-0.6) 10^3/ul Absolute Basos (auto) (0-0.2) 10^3/ul Absolute Nucleated RBC 10^3/ul Nucleated RBC % INR (Anticoag Therapy) 1.18 H (0.77-1.02) APTT 34.1 (26.0-36.3) seconds Sodium 136 (133-145) mmol/L Potassium 4.0 (3.5-5.0) mmol/L Chloride 102 (101-111) mmol/L Carbon Dioxide 28 (22-32) mmol/L Anion Gap 6 (2-11) mmol/L BUN 11 (6-24) mg/dL Creatinine 0.83 (0.67-1.17) mg/dL Est GFR ( Amer) 119.2 (>60) Est GFR (Non-Af Amer) 92.7 (>60) BUN/Creatinine Ratio 13.3 (8-20) Glucose 256 H (70-100) mg/dL Calcium 9.4 (8.6-10.3) mg/dL Magnesium 1.7 L (1.9-2.7) mg/dL Total Bilirubin 0.70 (0.2-1.0) mg/dL AST 19 (13-39) U/L ALT 15 (7-52) U/L Alkaline Phosphatase 98 (34-104) U/L Total Creatine Kinase 92 (10-223) U/L CK-MB (CK-2) 4.5 (0.6-6.3) ng/mL Troponin I 0.80 H* (<0.04) ng/mL B-Natriuretic Peptide 75 ( - 100) pg/mL Total Protein 6.8 (6.4-8.9) g/dL Albumin 4.2 (3.2-5.2) g/dL Globulin 2.6 (2-4) g/dL Albumin/Globulin Ratio 1.6 (1-3) TSH 2.37 (0.34-5.60) mcIU/mL Thyroxine (T4) 7.08 (6.09-12.23) mcg/mL 07/23/17 07/23/17 Range/Units 11:05 13:40 WBC 6.0 (3.5-10.8) 10^3/ul RBC 4.97 (4.0-5.4) 10^6/ul Hgb 13.5 L (14.0-18.0) g/dl Hct 40 L (42-52) % MCV 81 (80-94) fL MCH 27 (27-31) pg MCHC 34 (31-36) g/dl RDW 14 (10.5-15) % Plt Count 181 (150-450) 10^3/ul MPV 8 (7.4-10.4) um3 Neut % (Auto) 73.6 (38-83) % Lymph % (Auto) 15.5 L (25-47) % Curry % (Auto) 8.2 H (0-7) % Eos % (Auto) 2.1 (0-6) % Baso % (Auto) 0.6 (0-2) % Absolute Neuts (auto) 4.4 (1.5-7.7) 10^3/ul Absolute Lymphs (auto) 0.9 L (1.0-4.8) 10^3/ul Absolute Monos (auto) 0.5 (0-0.8) 10^3/ul Absolute Eos (auto) 0.1 (0-0.6) 10^3/ul Absolute Basos (auto) 0 (0-0.2) 10^3/ul Absolute Nucleated RBC 0 10^3/ul Nucleated RBC % 0 INR (Anticoag Therapy) (0.77-1.02) APTT (26.0-36.3) seconds Sodium (133-145) mmol/L Potassium (3.5-5.0) mmol/L Chloride (101-111) mmol/L Carbon Dioxide (22-32) mmol/L Anion Gap (2-11) mmol/L BUN (6-24) mg/dL Creatinine (0.67-1.17) mg/dL Est GFR ( Amer) (>60) Est GFR (Non-Af Amer) (>60) BUN/Creatinine Ratio (8-20) Glucose (70-100) mg/dL Calcium (8.6-10.3) mg/dL Magnesium (1.9-2.7) mg/dL Total Bilirubin (0.2-1.0) mg/dL AST (13-39) U/L ALT (7-52) U/L Alkaline Phosphatase (34-104) U/L Total Creatine Kinase (10-223) U/L CK-MB (CK-2) (0.6-6.3) ng/mL Troponin I 0.99 H* (<0.04) ng/mL B-Natriuretic Peptide ( - 100) pg/mL Total Protein (6.4-8.9) g/dL Albumin (3.2-5.2) g/dL Globulin (2-4) g/dL Albumin/Globulin Ratio (1-3) TSH (0.34-5.60) mcIU/mL Thyroxine (T4) (6.09-12.23) mcg/mL Assess/Plan/Problems-Billing Assessment: 66 yo M h/o HTN, HLD, DM2 presents with chest pain found with multivessel disease better amenable to CABG - Patient Problems (1) CAD (coronary artery disease) Comment: multivessel diz Plan for transfer to [facility]. Accepted and bed pending. Confirmed this evening c/w lovenox full dose, ASA, atenolol, lipitor (2) Diabetes Comment: ISS hold metformin (3) Hypertension Comment: lisinopril, atenolol Status and Disposition: Pending bed availability at [facility]. Accepting physician Aren Swartz. All paperwork completed
[2017-07-25] MEDS: Lisinopril TAB* 10 MG PO SCH (20:51)
--- NOTE | 2017-07-26 04:14 | CATH ---
CC: Dr. Talbot, [place], [place]; Dr. Thiago Hope; Dr. Swartz at [facility] * CATH REPORT: DATE OF PROCEDURE: 07/24/17 - ROOM #[id number] PRIMARY CARE PHYSICIAN: Dr. Talbot in [place]. COMMISSIONS SPECIALIST: Dr. Thiago Hope. PROCEDURE: Right radial artery access, bilateral selective coronary cineangiography, left heart catheterization, and left ventriculography. HISTORY: A 66-year-old diabetic male with non-ST elevation infarct. PROCEDURE ACCESS: Right radial artery sheath 6F slender. MEDICATIONS: 1. Subcu lidocaine. 2. IV Versed. 3. IV fentanyl. 4. Verapamil 3 mg. 5. Nitroglycerin 300 mcg IA. Heparin was not given as the patient arrived on a heparin drip. DIAGNOSTIC CATHETERS: 5FL4, 6FR4, 5F pigtail. There was considerable right subclavian tortuosity necessitating a 6-Estonian right 4 catheter for right coronary engagement. HEMODYNAMICS: Initial BP 187/103, LV 136/11-26, no aortic valve gradient on pullback. Final BP 142/85. ANGIOGRAPHY: Injection in the right subclavian demonstrated tortuosity, which was easily traversed with a Wholey wire. Left Main: The left main is long, has distal calcification with insignificant stenosis. LAD: The LAD is moderate, extends past the apex and supplies a large portion of the inferoapical septum. The LAD is calcified, it has a proximal first diagonal which is moderate, has an 80% proximal stenosis, is probably graftable unless it is too high. Within a centimeter, the LAD has an 80% stenosis followed shortly thereafter by a second stenosis of approximately 70%. The second diagonal rises adjacent to the second stenosis, is occluded at the origin , is small but may be underfilled, its distribution is uncertain. The LAD distally has luminal irregularity, but no significant stenosis. Circumflex: The circumflex is codominant, large, with a moderate first marginal which has luminal irregularity, followed by a small second marginal which has no stenosis. The third marginal has a lengthy tubular proximal 75% stenosis, there is a large posterolateral which has 40% to 50% proximal stenosis , distally the circumflex supplies a small caliber PDA. RCA: The RCA is moderate, codominant, with a moderate PDA, has no significant stenosis. LV gram: There is probable minimal mid anterolateral hypokinesis, overall estimated ejection fraction 55%. CONCLUSION: 1. Two-vessel coronary artery disease with ACS presentation and proximal LAD disease. 2. Preserved LV systolic function with minimal regional wall motion abnormality. 3. Hypertension with elevated LVDP. 4. Successful right radial artery access. RECOMMENDATIONS: For bypass grafting. [id number]/CPS #: [id number] MTDD
[2017-07-26] MEDS: Enoxaparin(*) 100 MG/ML SYR SUBCUT SCH (05:10)
[2017-07-26] MEDS: Insulin LISPRO* 1 UNITS UNIT SUBCUT SCH (08:07)
[2017-07-26] MEDS: Atenolol TAB* 50 MG PO SCH (08:07)
[2017-07-26] MEDS: Docusate CAP* 100 MG PO SCH (08:07)
[2017-07-26] MEDS: Aspirin Low Dose CHEW TAB* 81 MG PO SCH (08:07)
[2017-07-26] MEDS: Lisinopril TAB* 10 MG PO SCH (08:08)
[2017-07-26 09:23] VITALS: BP 126/66
--- NOTE | 2017-07-26 17:57 | DCNOTE ---
Subjective Date of Service: 07/26/17 Interval History: Bed available at [facility] No changes overnight or since the completion of dictated discharge summary yesterday Patient remains chest pain free without complaints Please see dictated discharge for full details pertaining to patients hospital stay Objective Oxygen Devices in Use Now: None Result Diagrams: 07/24/17 04:40 07/25/17 05:05 Additional Lab and Data: Lab Results 07/23/17 07/23/17 07/23/17 Range/Units 11:05 11:05 11:05 WBC (3.5-10.8) 10^3/ul RBC (4.0-5.4) 10^6/ul Hgb (14.0-18.0) g/dl Hct (42-52) % MCV (80-94) fL MCH (27-31) pg MCHC (31-36) g/dl RDW (10.5-15) % Plt Count (150-450) 10^3/ul MPV (7.4-10.4) um3 Neut % (Auto) (38-83) % Lymph % (Auto) (25-47) % [place] % (Auto) (0-7) % Eos % (Auto) (0-6) % Baso % (Auto) (0-2) % Absolute Neuts (auto) (1.5-7.7) 10^3/ul Absolute Lymphs (auto) (1.0-4.8) 10^3/ul Absolute Monos (auto) (0-0.8) 10^3/ul Absolute Eos (auto) (0-0.6) 10^3/ul Absolute Basos (auto) (0-0.2) 10^3/ul Absolute Nucleated RBC 10^3/ul Nucleated RBC % INR (Anticoag Therapy) 1.18 H (0.77-1.02) APTT 34.1 (26.0-36.3) seconds Sodium 136 (133-145) mmol/L Potassium 4.0 (3.5-5.0) mmol/L Chloride 102 (101-111) mmol/L Carbon Dioxide 28 (22-32) mmol/L Anion Gap 6 (2-11) mmol/L BUN 11 (6-24) mg/dL Creatinine 0.83 (0.67-1.17) mg/dL Est GFR ( Amer) 119.2 (>60) Est GFR (Non-Af Amer) 92.7 (>60) BUN/Creatinine Ratio 13.3 (8-20) Glucose 256 H (70-100) mg/dL Calcium 9.4 (8.6-10.3) mg/dL Magnesium 1.7 L (1.9-2.7) mg/dL Total Bilirubin 0.70 (0.2-1.0) mg/dL AST 19 (13-39) U/L ALT 15 (7-52) U/L Alkaline Phosphatase 98 (34-104) U/L Total Creatine Kinase 92 (10-223) U/L CK-MB (CK-2) 4.5 (0.6-6.3) ng/mL Troponin I 0.80 H* (<0.04) ng/mL B-Natriuretic Peptide 75 ( - 100) pg/mL Total Protein 6.8 (6.4-8.9) g/dL Albumin 4.2 (3.2-5.2) g/dL Globulin 2.6 (2-4) g/dL Albumin/Globulin Ratio 1.6 (1-3) TSH 2.37 (0.34-5.60) mcIU/mL Thyroxine (T4) 7.08 (6.09-12.23) mcg/mL 07/23/17 07/23/17 Range/Units 11:05 13:40 WBC 6.0 (3.5-10.8) 10^3/ul RBC 4.97 (4.0-5.4) 10^6/ul Hgb 13.5 L (14.0-18.0) g/dl Hct 40 L (42-52) % MCV 81 (80-94) fL MCH 27 (27-31) pg MCHC 34 (31-36) g/dl RDW 14 (10.5-15) % Plt Count 181 (150-450) 10^3/ul MPV 8 (7.4-10.4) um3 Neut % (Auto) 73.6 (38-83) % Lymph % (Auto) 15.5 L (25-47) % [place] % (Auto) 8.2 H (0-7) % Eos % (Auto) 2.1 (0-6) % Baso % (Auto) 0.6 (0-2) % Absolute Neuts (auto) 4.4 (1.5-7.7) 10^3/ul Absolute Lymphs (auto) 0.9 L (1.0-4.8) 10^3/ul Absolute Monos (auto) 0.5 (0-0.8) 10^3/ul Absolute Eos (auto) 0.1 (0-0.6) 10^3/ul Absolute Basos (auto) 0 (0-0.2) 10^3/ul Absolute Nucleated RBC 0 10^3/ul Nucleated RBC % 0 INR (Anticoag Therapy) (0.77-1.02) APTT (26.0-36.3) seconds Sodium (133-145) mmol/L Potassium (3.5-5.0) mmol/L Chloride (101-111) mmol/L Carbon Dioxide (22-32) mmol/L Anion Gap (2-11) mmol/L BUN (6-24) mg/dL Creatinine (0.67-1.17) mg/dL Est GFR ( Amer) (>60) Est GFR (Non-Af Amer) (>60) BUN/Creatinine Ratio (8-20) Glucose (70-100) mg/dL Calcium (8.6-10.3) mg/dL Magnesium (1.9-2.7) mg/dL Total Bilirubin (0.2-1.0) mg/dL AST (13-39) U/L ALT (7-52) U/L Alkaline Phosphatase (34-104) U/L Total Creatine Kinase (10-223) U/L CK-MB (CK-2) (0.6-6.3) ng/mL Troponin I 0.99 H* (<0.04) ng/mL B-Natriuretic Peptide ( - 100) pg/mL Total Protein (6.4-8.9) g/dL Albumin (3.2-5.2) g/dL Globulin (2-4) g/dL Albumin/Globulin Ratio (1-3) TSH (0.34-5.60) mcIU/mL Thyroxine (T4) (6.09-12.23) mcg/mL Assess/Plan/Problems-Billing Assessment: 66 yo M h/o HTN, HLD, DM2 presents with chest pain found with multivessel disease better amenable to CABG - Patient Problems (1) CAD (coronary artery disease) Comment: multivessel diz Plan for transfer to [facility]. Accepted and bed pending. Confirmed this evening c/w lovenox full dose, ASA, atenolol, lipitor (2) Diabetes Comment: ISS hold metformin (3) Hypertension Comment: lisinopril, atenolol Status and Disposition: Pending bed availability at [facility]. Accepting physician Aren Swartz. All paperwork completed
== END 2017-07-26 11:00 | disposition short-term general hospital (02) | DRG 282 ==
LOC: ED 10:22 → MEDTELE 14:14 → INTOOBSV 17:56 → OBSVTOIN 17:56
PROVIDERS: ADMIT Internal Medicine; ATTEND Internal Medicine
PROC: B2111ZZ Fluoroscopy of Multiple Coronary Arteries using Low Osmolar Contrast (ICD-10-PCS; 2017-07-24)
PROC: B2151ZZ Fluoroscopy of Left Heart using Low Osmolar Contrast (ICD-10-PCS; 2017-07-24)
PROC: 4A023N7 Measurement of Cardiac Sampling and Pressure, Left Heart, Percutaneous Approach (ICD-10-PCS; principal; 2017-07-24 11:00)
DX: I21.4 Non-ST elevation (NSTEMI) myocardial infarction (principal); I25.118 Atherosclerotic heart disease of native coronary artery with other forms of angina pectoris; I27.20 Pulmonary hypertension, unspecified; E11.65 Type 2 diabetes mellitus with hyperglycemia; I48.91 Unspecified atrial fibrillation; E83.42 Hypomagnesemia; I08.1 Rheumatic disorders of both mitral and tricuspid valves; D64.9 Anemia, unspecified; I10 Essential (primary) hypertension; M10.9 Gout, unspecified; Z79.82 Long term (current) use of aspirin; Z79.01 Long term (current) use of anticoagulants; Z79.4 Long term (current) use of insulin; E78.00 Pure hypercholesterolemia, unspecified; Z82.49 Family history of ischemic heart disease and other diseases of the circulatory system; Z82.3 Family history of stroke; Z81.8 Family history of other mental and behavioral disorders; R74.8 Abnormal levels of other serum enzymes; E66.8 Other obesity; Z68.33 Body mass index [BMI] 33.0-33.9, adult
CPT/HCPCS: 36415; 71046; 80048; 80053; 80061; 81003; 82550; 82553; 83036; 83735; 83880; 84436; 84443; 84484; 85025; 85610; 85730; 93005; 93306; 93458; 99156; 99157; 99284; A9270-GY; C1887; C8929; J0461; J1170; J1644; J1650; J2250; J3010; J3475